=== PATIENT | female | born 1960 | race Caucasian/White ===

== ENCOUNTER 2019-11-21 16:13 | Emergency (ER) | payer OTHER ==
[~2019-11-21] VITALS: Ht 154.9 cm; Wt 72.6 kg
[~2019-11-21 16:13] MED LIST: ACETAMINOPHEN-1 EAC1 PO; BACTRIM DS TAB1 EACH PO; BENTYL20 MG PO; BP MEDS; CALCIUM 600 +1 EAC5 PO; CALCIUM 600+D1 EAC4 PO; CENTRUM SILVER1 EAC3 PO; CENTRUM SILVER1 EAC4 PO; CHLORTHALIDONE25 MG PO; CIPRO500 MG PO; CIPROFLOXACIN500 M3 PO; CLEOCIN HCL150 MG PO; CLEOCIN HCL300 MG PO; DOXEPIN 10 MG C10 M1 PO; FLAGYL500 MG PO; LIALDA1.2 GM PO; LISINOPRIL10 MG PO; LISINOPRIL5 MG PO; MELADOX3 MG PO; MIRALAX255 GM PO; MULTIVITAMINS PO; NEXIUM40 MG PO; NORCO 5-325 TA1 EACH PO; OCUVITE LUTEIN1 EAC2 PO; OMEGA-31000 M1 PO; POTASSIUM GLUCONATE PO; POTASSIUM99 M1 PO; PREMARIN0.625 MG PO; RESTASIS1 EACH OPHTHALMIC; ULTRAM 50MG TAB50 MG PO; ZOFRAN4 MG PO; ZYRTEC 10 MG TA10 M1 PO; ZYRTEC 10 MG TA10 MG PO; [UNRECOGNIZED DRUG - OTHER] PO; [UNRECOGNIZED DRUG - REMARK] PO
[2019-11-21] MEDS ORDERED: DILTIAZEM ER180 M2 (16:33)
[2019-11-21 16:41] LABS: URINE BILIRUBIN NEGATIVE (Negative); URINE BLOOD NEGATIVE (Negative); URINE CLARITY CLEAR; URINE COLOR YELLOW; URINE GLUCOSE-RANDOM NEGATIVE (Negative); URINE KETONES NEGATIVE (Negative); URINE LEUKOCYTES-REFLEX NEGATIVE (Negative); URINE NITRITE-REFLEX NEGATIVE (Negative); URINE PROTEIN NEGATIVE (Negative); URINE UROBILINOGEN 0.2 E.U./dl (0.2-1.0)
[2019-11-21 16:42] LABS: ABSOLUTE EOSINOPHILS 0.3 thou/uL (0.0-0.7); ABSOLUTE LYMPHOCYTES 2.4 thou/uL (0.8-5.3); ABSOLUTE MONOCYTES 0.6 thou/uL (0.0-1.2); ABSOLUTE NEUTROPHILS 5.9 thou/uL (1.6-8.1); BASOPHILS 0.5 %; EOSINOPHILS 3.1 %; HEMATOCRIT 40.8 % (37.0-47.0); HEMOGLOBIN 14.3 gm/dL (12.0-15.0); MCH 30.6 pg (26.0-34.0); MCV 87.5 fL (80.0-100.0); MONOCYTES 6.4 %; MPV 7.9 fl. (7.2-11.1); NUCLEATED RBCS 0 /100WBC; PLATELET COUNT* 338 thou/uL (150-400); RBC 4.66 mil/uL (4.20-5.00); RDW-CV 13.3 % (10.5-14.5); WBC 9.1 thou/uL (4.0-11.0)
[2019-11-21 16:55] LABS: CALCIUM 8.6 mg/dL (8.5-10.1); CREATININE 0.9 mg/dL (0.6-1.3); POTASSIUM 3.4 mmol/L (3.5-5.1)
[2019-11-21 17:00] LABS: ALBUMIN 3.7 g/dL (3.4-5.0); TOTAL BILIRUBIN 0.2 mg/dL (<0.1-1.0); TOTAL PROTEIN 7.4 g/dL (6.4-8.2)
[2019-11-21 18:50] VITALS: BP 148/57
--- NOTE | 2019-11-23 16:09 | EKG ---
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 : 1960 Requested By: Joel Townsend Order Number: [id number] MD: Uday Foster Measurements Intervals [place] Rate: 69 P: 26 [place]: 178 QRS: -32 QRSD: 100 T: 30 QT: 431 QTc: 462 Interpretive Statements Sinus rhythm Left axis deviation Abnormal R-wave progression, early transition Compared to ECG 02/17/2017 11:25:59 No significant changes Electronically Signed On 11-23-2019 16:07:27 CDT by Uday Foster [email or web address] <ELECTRONICALLY SIGNED> By: Uday Foster MD, FACC 11/23/19 1607 1641 1641 Uday Foster MD, [facility] /EPI
== END 2019-11-21 18:51 | disposition home or self-care (01) ==
LOC: M.ERS 16:13
PROVIDERS: Family Medicine
DX: R10.11 Right upper quadrant pain (principal); I10 Essential (primary) hypertension; Z88.0 Allergy status to penicillin; Z88.1 Allergy status to other antibiotic agents; Z90.710 Acquired absence of both cervix and uterus; Z85.828 Personal history of other malignant neoplasm of skin